=== PATIENT | female | born 1995 | race African-American/Black ===

== ENCOUNTER 2024-04-07 14:01 | Outpatient (AMB) | payer OTHER, SELFPAY ==
[2024-04-07 14:30] VITALS: BP 120/80; PULSE 71; O2SAT 98; BMI 26.4
--- NOTE | 2024-04-07 14:30 | A.OFFVIS_ITS ---
Vital Signs 04/07/24 14:30 Height 5 ft 2 in Weight 144 lb 2.917 oz BMI 26.4 BP 120/80 Blood Pressure Location Lt brachial Position Sitting Pulse 71 Pulse Source Pulse Oximeter Pulse Oximetry (%) 98 Oxygen Delivery Method Room Air Intake Visit Reasons: Lupus/CM Intake Note: Patient presents for lupus follow up on Lupus. Patient is requesting Hydroxychloroquine. Patient would like to request 90 days supply. Allergies metronidazole [From Flagyl] Allergy (Mild, Verified 04/07/24 14:34) HIVES HPI Comments Details: Ran out of HCQ. Had an epsiode of right finger joint pain lasting 2 days, self resolved this week. No other flares. NO fevers, rash, dyspnea, oral ulcers, pleurisy, urinary symptoms, joint pain or swelling, sicca symptoms, raynaud's syndrome. Review of Systems Const All systems reviewed & are unremarkable except as noted in HPI and below Physical Exam Vital Signs: Last Vital Signs Pulse 71 04/07/24 14:30 BP 120/80 04/07/24 14:30 Pulse Ox 98 04/07/24 14:30 Oxygen Delivery Method Room Air 04/07/24 14:30 BMI result Body Mass Index 26.4 Const Other: General: Comfortable CVS: RRR Respiratory: clear to auscultation bilaterally. Good respiratory effort Skin: No lesions seen MSK:No synovitis, good ROM of upper extremities and lower extremities. Assessment & Plan Assessment & Plan (1) Systemic lupus erythematosus: Comment: Stable. She had recent flare of joint pain involving right 2nd finger, self resolved off of hydroxychloroquine. 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 Category: Medical Plan: See above Orders: Orders C Reactive Protein Today M32.9 - Systemic lupus erythematosus, unspecified, Z79.899 - Other intermodal truck driver (current) drug therapy Aspartate Amino Transferase Today Z79.60 - long term acute care registered nurse (current) use of unspecified immunomodulators and immunosuppressants Anti Extractable Nuclear Ag Today M32.9 - Systemic lupus erythematosus, unspecified, Z79.899 - Other intermodal truck driver (current) drug therapy UA w Microscopic Today M32.9 - Systemic lupus erythematosus, unspecified, Z79.899 - Other detention (current) drug therapy Protein Creatinine Ratio, Ur Today M32.9 - Systemic lupus erythematosus, unspecified, Z79.899 - Other intermodal truck driver (current) drug therapy Erythrocyte Sedimentation Rate Today M32.9 - Systemic lupus erythematosus, unspecified, Z79.899 - Other detention (current) drug therapy Alanine Aminotransferase Today Z79.60 - long term acute care registered nurse (current) use of unspecified immunomodulators and immunosuppressants Creatinine Today Z79.60 - long term acute care registered nurse (current) use of unspecified immunomodulators and immunosuppressants Complete Blood Count Auto Diff Today Z79.60 - [facility] (current) use of unspecified immunomodulators and immunosuppressants Complement C4 Today M32.9 - Systemic lupus erythematosus, unspecified, Z79.899 - Other intermodal truck driver (current) drug therapy Complement C3 Today M32.9 - Systemic lupus erythematosus, unspecified, Z79.899 - Other detention (current) drug therapy Anti DNA DS Antibody Today M32.9 - Systemic lupus erythematosus, unspecified, Z79.899 - Other detention (current) drug therapy Coding Level of Care Code Est Pt Level 4 (75386) Complex EM visit Add On G2211 Diagnoses Systemic lupus erythematosus M32.9 Other detention (current) drug therapy Z79.899
== END 2024-04-07 15:04 | disposition home or self-care (01) ==
PROVIDERS: PCP Internal Medicine; Visit Provider Internal Medicine Rheumatology
DX: M32.9 Systemic lupus erythematosus, unspecified (principal); Z79.899 Other long term (current) drug therapy
CPT/HCPCS: 99214

== ENCOUNTER 2024-04-10 08:32 | Outpatient (REF) | payer OTHER, SELFPAY ==
[2024-04-10 08:50] LABS: MANUAL DIFF FLAG NO
[2024-04-10 09:25] LABS: Hematocrit 35.1 % (37.0-47.0); Hemoglobin 11.8 g/dl (12.0-16.0); Imm Gran Abs Auto 0.01 X10*3/uL (0.00-0.03); Imm Gran Pct Auto 0.2 % (0.0-0.4); Lymphocytes Absolute Auto 1.4 X10*3/uL (1.2-4.9); Lymphocytes Percent Auto 34.7 % (20-40); Mean Corpuscular HGB Conc 33.6 g/dl (31.0-35.0); Mean Corpuscular Hemoglobin 28.9 pg (27.0-33.0); Mean Corpuscular Volume 85.8 fL (80.0-98.0); Mean Platelet Volume 10.3 fL (9.4-12.3); Monocytes Absolute Auto 0.3 X10*3/uL (0.1-1.2); Monocytes Percent Auto 8.2 % (2-11); Neutrophils Absolute Auto 2.2 x10*3/uL (2.0-8.3); Neutrophils Percent Auto 54.9 % (45-73); Platelet Count 210 X10*3/uL (160-400); Red Blood Count 4.09 X10*6/uL (4.20-5.50); Red Cell Distribution Width 12.7 % (11.0-16.0)
[2024-04-10 09:40] LABS: Appearance Urine Clear; Color Urine Yellow; Glucose Urine UA Negative (Negative); Leukocyte Esterase Urine Negative (Negative); Nitrite Urine Negative (Negative); PH 5.5 (5.0-9.0); Urine Blood Negative (Negative); Urine Ketones Negative (Negative); Urine Protein Negative (Neg-Trace)
[2024-04-10 09:43] LABS: Bacteria Urine 1+ (None Seen); Hyaline Casts Urine 0-2 /LPF (0-2); RBC Urine 0-2 /HPF (0-2); WBC Urine 0-5 /HPF (0-5)
[2024-04-10 10:03] LABS: Erythrocyte Sedimentation Rate 14 MM/HR (0-20)
[2024-04-10 10:15] LABS: Alanine Aminotransferase 11 U/L (0-31); Aspartate Amino Transferase 19 U/L (5-31); C Reactive Protein < 0.10 mg/dL (< or = 0.50); Estimated Glomerular Filt Rate > 60
[2024-04-10 11:30] LABS: Total Protein Urine Random < 7 mg/dL (<12)
[2024-04-12 09:08] LABS: Complement C3 83 mg/dL (83-193)
[2024-04-13 14:19] LABS: Anti DNA DS Antibody 4 IU/mL; SM/Ribonucleoprotein Ab <1.0 NEG AI (<1.0 NEG); Smith Protein <1.0 NEG AI (<1.0 NEG)
== END 2024-04-10 08:33 | disposition home or self-care (01) ==
LOC: HO.LAB 08:32
PROVIDERS: PCP Internal Medicine; Visit Provider Internal Medicine Rheumatology
DX: M32.9 Systemic lupus erythematosus, unspecified (principal); Z79.60 Long term (current) use of unspecified immunomodulators and immunosuppressants; Z79.899 Other long term (current) drug therapy
CPT/HCPCS: 36415; 81001; 82565; 82570; 84156; 84450; 84460; 85025; 85652; 86140; 86160; 86225; 86235

== ENCOUNTER 2024-07-06 13:57 | Outpatient (AMB) | payer OTHER, SELFPAY ==
--- NOTE | 2024-07-06 14:11 | MHC.OFFVIS ---
Vital Signs 07/06/24 14:13 Height 5 ft 2 in Weight 147 lb 0.773 oz BMI 26.9 BP 106/80 Blood Pressure Location Lt brachial Position Sitting Pulse 73 Pulse Source Pulse Oximeter Pulse Oximetry (%) 98 Oxygen Delivery Method Room Air Intake Visit Reasons: 3 mo follow up Intake Note: Patient presents for lupus follow up on Lupus. Allergies metronidazole [From Flagyl] Allergy (Mild, Verified 04/07/24 14:34) HIVES HPI HPI 3 mo follow up: Details: She had joint pain in Feb with index finger swelling. Lasted 2 days. She did not self medicate. No fevers, dyspnea, pleurisy, urinary symptoms, oral ulcers, raynauds' syndrome. Review of Systems Const All systems reviewed & are unremarkable except as noted in HPI and below Physical Exam Vital Signs: Last Vital Signs Pulse 73 07/06/24 14:13 BP 106/80 07/06/24 14:13 Pulse Ox 98 07/06/24 14:13 Oxygen Delivery Method Room Air 07/06/24 14:13 BMI result Body Mass Index 26.9 Const Other: General: Comfortable CVS: RRR Respiratory: clear to auscultation bilaterally. Good respiratory effort Skin: No lesions seen MSK:No synovitis, normal ROM of upper extremities and lower extremities. Assessment & Plan Assessment & Plan (1) Systemic lupus erythematosus: Comment: She is developing joint pain/swelling involving her right hand, self-limited. Labs from last visit are stable revealing chronic leukopenia, mild anemia and low C4. Rheumatology history: Diagnosed in 2018 in [place]. Presenting with inflammatory arthritis and rash. She has leukopenia, chronic low C4 and positive SSA antibody. She has been on hydroxychloroquine since 2018- Code(s): M32.9 - Systemic lupus erythematosus, unspecified Category: Medical Plan: She will use ibuprofen 600 mg q.h.s. with food to control joint pain Keep log of joint symptoms Continue hydroxychloroquine 300 mg daily. OCT and visual field test 07/2024 Return to clinic in 3 months (2) Anemia: Code(s): D64.9 - Anemia, unspecified Category: Medical Qualifiers: Anemia type: unspecified type Qualified Code(s): D64.9 - Anemia, unspecified Plan: I have ordered iron studies for further evaluation of anemia (3) Hand pain, right: Code(s): M79.641 - Pain in right hand Category: Medical Plan: See above Orders: Orders Aspartate Amino Transferase Today Z79.60 - nursing home (current) use of unspecified immunomodulators and immunosuppressants Anti DNA DS Antibody Today M32.9 - Systemic lupus erythematosus, unspecified Complement C4 Today M32.9 - Systemic lupus erythematosus, unspecified UA w Microscopic Today M32.9 - Systemic lupus erythematosus, unspecified IRON PROFILE Today D64.9 - Anemia, unspecified Lactate Dehydrogenase Today D64.9 - Anemia, unspecified Haptoglobin Today D64.9 - Anemia, unspecified Alanine Aminotransferase Today Z79.60 - local company intermodal truck driver (current) use of unspecified immunomodulators and immunosuppressants Complete Blood Count Auto Diff Today Z79.60 - local company intermodal truck driver (current) use of unspecified immunomodulators and immunosuppressants Creatinine Today Z79.60 - local company intermodal truck driver (current) use of unspecified immunomodulators and immunosuppressants Erythrocyte Sedimentation Rate Today Z79.899 - Other termite helper (current) drug therapy C Reactive Protein Today Z79.899 - Other nursing home (current) drug therapy Complement C3 Today M32.9 - Systemic lupus erythematosus, unspecified Protein Creatinine Ratio, Ur Today M32.9 - Systemic lupus erythematosus, unspecified Ferritin Today D64.9 - Anemia, unspecified Transferrin Today D64.9 - Anemia, unspecified Cyclic Citrullinated Peptide Today M79.641 - Pain in right hand Rheumatoid Factor Today M79.641 - Pain in right hand Coding Level of Care Code Est Pt Level 4 (43555) Complex EM visit Add On G2211 Diagnoses Systemic lupus erythematosus M32.9 Anemia, unspecified type D64.9 Anemia type: unspecified type Hand pain, right M79.641
[2024-07-06 14:13] VITALS: BP 106/80; PULSE 73; O2SAT 98; BMI 26.9
== END 2024-07-06 14:42 | disposition home or self-care (01) ==
LOC: HO.RHES 13:58
PROVIDERS: PCP Internal Medicine; Visit Provider Internal Medicine Rheumatology
DX: M32.9 Systemic lupus erythematosus, unspecified (principal); D64.9 Anemia, unspecified; M79.641 Pain in right hand
CPT/HCPCS: 99214

== ENCOUNTER 2024-07-06 13:57 | Outpatient (REF) | payer OTHER, SELFPAY ==
[2024-07-06 18:34] LABS: MANUAL DIFF FLAG NO
[2024-07-06 18:37] LABS: Appearance Urine Clear; Color Urine Yellow; Glucose Urine UA Negative (Negative); Leukocyte Esterase Urine Negative (Negative); Nitrite Urine Negative (Negative); Urine Blood Negative (Negative); Urine Ketones Negative (Negative); Urine Protein Negative (Neg-Trace)
[2024-07-06 18:40] LABS: Basophils Percent Auto 0.7 % (0-2); Eosinophils Absolute Auto 0.1 X10*3/uL (0.0-0.4); Eosinophils Percent Auto 1.1 % (0-4); Hematocrit 36.3 % (37.0-47.0); Imm Gran Abs Auto 0.01 X10*3/uL (0.00-0.03); Imm Gran Pct Auto 0.2 % (0.0-0.4); Lymphocytes Absolute Auto 1.9 X10*3/uL (1.2-4.9); Lymphocytes Percent Auto 34.7 % (20-40); Mean Corpuscular HGB Conc 33.1 g/dl (31.0-35.0); Mean Corpuscular Hemoglobin 29.1 pg (27.0-33.0); Mean Corpuscular Volume 87.9 fL (80.0-98.0); Mean Platelet Volume 10.8 fL (9.4-12.3); Monocytes Absolute Auto 0.5 X10*3/uL (0.1-1.2); Monocytes Percent Auto 8.3 % (2-11); Neutrophils Absolute Auto 3.1 x10*3/uL (2.0-8.3); Platelet Count 213 X10*3/uL (160-400); Red Blood Count 4.13 X10*6/uL (4.20-5.50); Red Cell Distribution Width 13.2 % (11.0-16.0); White Blood Count 5.6 X10*3/uL (4.8-10.8)
[2024-07-06 18:44] LABS: Bacteria Urine None Seen (None Seen); Hyaline Casts Urine 0-2 /LPF (0-2); RBC Urine 0-2 /HPF (0-2); WBC Urine 0-5 /HPF (0-5)
[2024-07-06 19:12] LABS: Creatinine Urine 82.41 mg/dL; Total Protein Urine Random < 7 mg/dL (<12)
[2024-07-06 19:18] LABS: Haptoglobin 127 mg/dL (35-250)
[2024-07-06 19:21] LABS: Rheumatoid Factor < 13.0 IU/mL (<15.0)
[2024-07-06 19:43] LABS: Lactate Dehydrogenase 233 U/L (122-220)
[2024-07-06 19:52] LABS: Alanine Aminotransferase 14 U/L (0-31); Aspartate Amino Transferase 25 U/L (5-31); C Reactive Protein < 0.10 mg/dL (< or = 0.50); Estimated Glomerular Filt Rate > 60; Iron 66 mcg/dL (30-160); Percent Iron Saturation 23 % (15-50); Total Iron Binding Capacity 284 mcg/dL (228-428); Unsaturated Iron Binding 218 ug/dL
[2024-07-06 20:06] LABS: Ferritin 21 ng/mL (10-122)
[2024-07-06 20:11] LABS: Erythrocyte Sedimentation Rate 14 MM/HR (0-20)
[2024-07-07 09:34] LABS: Transferrin 266 mg/dL (188-341)
[2024-07-07 12:09] LABS: Complement C3 92 mg/dL (83-193)
[2024-07-07 18:54] LABS: Anti DNA DS Antibody 3 IU/mL
[2024-07-08 11:37] LABS: Cyclic Citrullinated Peptide <16 UNITS
== END 2024-07-06 13:58 | disposition home or self-care (01) ==
LOC: HO.HKASLDS 13:57
PROVIDERS: PCP Internal Medicine; Visit Provider Internal Medicine Rheumatology
DX: M32.9 Systemic lupus erythematosus, unspecified (principal); Z79.60 Long term (current) use of unspecified immunomodulators and immunosuppressants; Z79.899 Other long term (current) drug therapy; D64.9 Anemia, unspecified; M79.641 Pain in right hand
CPT/HCPCS: 36415; 81001; 82565; 82570; 82728; 83010; 83540; 83615; 84156; 84450; 84460; 84466; 85025; 85652; 86140; 86160; 86200; 86225; 86431

== ENCOUNTER 2024-10-06 09:41 | Outpatient (REF) | payer OTHER, SELFPAY ==
[2024-10-06 13:58] LABS: Hematocrit 37.7 % (37.0-47.0); Hemoglobin 12.6 g/dl (12.0-16.0); IG%MD 0.2 %; Lymph%MD 42.8 %; Mean Corpuscular HGB Conc 33.4 g/dl (31.0-35.0); Mean Corpuscular Hemoglobin 28.7 pg (27.0-33.0); Mean Corpuscular Volume 85.9 fL (80.0-98.0); Mean Platelet Volume 10.2 fL (9.4-12.3); Mono%MD 9.2 %; Neut%MD 45.8 %; Platelet Count 236 X10*3/uL (160-400); Red Blood Count 4.39 X10*6/uL (4.20-5.50); Red Cell Distribution Width 12.7 % (11.0-16.0)
[2024-10-06 14:14] LABS: Appearance Urine Clear; Color Urine Yellow; Glucose Urine UA Negative (Negative); Leukocyte Esterase Urine Trace (Negative); Nitrite Urine Negative (Negative); PH 7.5 (5.0-9.0); Specific Gravity - Urine 1.025 (1.005-1.025); UMIC TRIGGER UA YES; Urine Blood Negative (Negative); Urine Ketones Trace mg/dL (Negative); Urine Protein 30 (1+) mg/dL (Neg-Trace)
[2024-10-06 14:18] LABS: Bacteria Urine 1+ (None Seen); Hyaline Casts Urine 0-2 /LPF (0-2); RBC Urine 0-2 /HPF (0-2); WBC Urine 0-5 /HPF (0-5)
[2024-10-06 14:35] LABS: Alanine Aminotransferase 17 U/L (0-31); Aspartate Amino Transferase 21 U/L (5-31); C Reactive Protein < 0.10 mg/dL (< or = 0.50); Estimated Glomerular Filt Rate > 60
[2024-10-06 14:36] LABS: Creatinine Urine 202.29 mg/dL; Protein/Creatinine Ratio, Ur 0.05 (<0.2); Total Protein Urine Random 10 mg/dL (<12)
[2024-10-06 14:42] LABS: Atypical Lymph Absolute Manual 0.2 x10*3/uL; Atypical Lymphs Percent Manual 3 % (0-6); Band Neutrophils Percent 0 % (3-5); Basophils Abs Manual 0.1 X10*3/uL (0.0-0.2); Basophils Percent Manual 1 % (0-2); Eosinophils Absolute Manual 0.1 X10*3/uL (0.0-0.4); Eosinophils Percent Manual 2 % (0-4); Lymphocytes Absolute Manual 2.2 X10*3/uL (1.2-4.9); Lymphocytes Percent Manual 44 % (20-40); Monocytes Absolute Manual 0.3 X10*3/uL (0.1-1.2); Monocytes Percent Manual 5 % (2-11); Neutrophils Absolute Manual 2.3 X10*3/uL (2.0-8.3); Neutrophils Percent Manual 45 % (45-73)
[2024-10-06 14:43] LABS: Platelet Estimate NORMAL (NORMAL); Platelet Morphology Comment NORMAL; RBC Morphology NORMAL
[2024-10-06 14:44] LABS: Erythrocyte Sedimentation Rate 12 MM/HR (0-20)
[2024-10-07 19:53] LABS: Complement C3 96 mg/dL (83-193)
[2024-10-07 21:53] LABS: Anti DNA DS Antibody 5 IU/mL
== END 2024-10-06 09:42 | disposition home or self-care (01) ==
LOC: HO.HKASLDS 09:41
PROVIDERS: PCP Internal Medicine; Visit Provider Internal Medicine Rheumatology
DX: M32.9 Systemic lupus erythematosus, unspecified (principal)
CPT/HCPCS: 36415; 81001; 82565; 82570; 84156; 84450; 84460; 85007; 85027; 85652; 86140; 86160; 86225

== ENCOUNTER 2024-10-06 09:41 | Outpatient (AMB) | payer OTHER, SELFPAY ==
[2024-10-06 09:50] VITALS: BP 110/62; PULSE 77; O2SAT 98; BMI 26.5
--- NOTE | 2024-10-06 09:50 | A.OFFVIS_ITS ---
Vital Signs 10/06/24 09:50 Height 5 ft 2 in Weight 145 lb BMI 26.5 BP 110/62 Blood Pressure Location Rt brachial Position Sitting Pulse 77 Pulse Source Pulse Oximeter Pulse Oximetry (%) 98 Oxygen Delivery Method Room Air Intake Visit Reasons: 3 Months Intake Note: Patient presents for follow up on Lupus. Allergies metronidazole [From Flagyl] Allergy (Mild, Verified 10/06/24 09:54) HIVES HPI HPI 3 Months: Details: She denies joint pain or swelling. Denies fevers, pleurisy, dyspnea, urinary symptoms, rash, Raynaud's phenomenon. She feels well. No recent infections. Physical Exam Vital Signs: Last Vital Signs Pulse 77 10/06/24 09:50 BP 110/62 10/06/24 09:50 Pulse Ox 98 10/06/24 09:50 Oxygen Delivery Method Room Air 10/06/24 09:50 BMI result Body Mass Index 26.5 Const Other: General: Comfortable CVS: RRR Respiratory: clear to auscultation bilaterally. Good respiratory effort Skin: No lesions seen MSK:No synovitis, normal ROM of upper extremities and lower extremities. Assessment & Plan Assessment & Plan (1) Systemic lupus erythematosus: Comment: In clinical remission. Joint pain and swelling has resolved. she is compliant on hydroxychloroquine. Labs from June show improvement with resolution of chronic leukopenia, hemoglobin is normal with low hematocrit and she continues to have low C4 but it is up trending. Rheumatology history: Diagnosed in 2018 in [place]. Presenting with inflammatory arthritis and rash. She has leukopenia, chronic low C4 and positive SSA antibody. She has been on hydroxychloroquine since 2018- Code(s): M32.9 - Systemic lupus erythematosus, unspecified Category: Medical Plan: Continue hydroxychloroquine 300 mg daily. OCT and visual field test 07/2024 wnl. Due yearly Return to clinic in 3 months Orders: Orders Complete Blood Count Man Dif Today M32.9 - Systemic lupus erythematosus, unspecified Erythrocyte Sedimentation Rate Today M32.9 - Systemic lupus erythematosus, unspecified Complement C4 Today M32.9 - Systemic lupus erythematosus, unspecified Anti DNA DS Antibody Today M32.9 - Systemic lupus erythematosus, unspecified Alanine Aminotransferase Today M32.9 - Systemic lupus erythematosus, unspecified Aspartate Amino Transferase Today M32.9 - Systemic lupus erythematosus, unspecified Creatinine Today M32.9 - Systemic lupus erythematosus, unspecified C Reactive Protein Today M32.9 - Systemic lupus erythematosus, unspecified UA w Microscopic Today M32.9 - Systemic lupus erythematosus, unspecified Protein Creatinine Ratio, Ur Today M32.9 - Systemic lupus erythematosus, unspecified Complement C3 Today M32.9 - Systemic lupus erythematosus, unspecified Medications: Refilled hydroxychloroquine 300 mg (1.5 x 200 mg) PO DAILY 135 tabs 3RF Coding Level of Care Code Est Pt Level 4 (76946) Complex EM visit Add On G2211 Diagnoses Systemic lupus erythematosus M32.9
== END 2024-10-06 10:17 | disposition home or self-care (01) ==
LOC: HO.RHES 09:41
PROVIDERS: PCP Internal Medicine; Visit Provider Internal Medicine Rheumatology
DX: M32.9 Systemic lupus erythematosus, unspecified (principal)
CPT/HCPCS: 99214; G2211

== ENCOUNTER 2025-01-12 09:20 | Outpatient (REF) | payer OTHER, SELFPAY ==
[2025-01-12 13:12] LABS: MANUAL DIFF FLAG NO
[2025-01-12 13:19] LABS: Hematocrit 35.8 % (37.0-47.0); Hemoglobin 11.9 g/dl (12.0-16.0); Imm Gran Abs Auto 0.01 X10*3/uL (0.00-0.03); Imm Gran Pct Auto 0.2 % (0.0-0.4); Lymphocytes Absolute Auto 1.9 X10*3/uL (1.2-4.9); Mean Corpuscular HGB Conc 33.2 g/dl (31.0-35.0); Mean Corpuscular Hemoglobin 28.8 pg (27.0-33.0); Mean Corpuscular Volume 86.7 fL (80.0-98.0); NRBC Abs Auto 0.000 X10*3/uL (0.0-0.012); NRBC Pct Auto 0.0 /100WBC (0.0-0.2); Platelet Count 254 X10*3/uL (160-400); Red Blood Count 4.13 X10*6/uL (4.20-5.50); White Blood Count 4.7 X10*3/uL (4.8-10.8)
[2025-01-12 13:21] LABS: Appearance Urine Clear; Glucose Urine UA Negative (Negative); PH 7.5 (5.0-9.0); Specific Gravity - Urine 1.010 (1.005-1.025)
[2025-01-12 14:05] LABS: Alanine Aminotransferase 11 U/L (0-31); Aspartate Amino Transferase 24 U/L (5-31); Estimated Glomerular Filt Rate > 60
[2025-01-12 14:15] LABS: Total Protein Urine Random < 7 mg/dL (<12)
== END 2025-01-12 09:21 | disposition home or self-care (01) ==
LOC: HO.HKASLDS 09:20
PROVIDERS: PCP Internal Medicine; Visit Provider Internal Medicine Rheumatology
DX: M32.9 Systemic lupus erythematosus, unspecified (principal); D72.819 Decreased white blood cell count, unspecified; R21 Rash and other nonspecific skin eruption; Z51.81 Encounter for therapeutic drug level monitoring; Z79.899 Other long term (current) drug therapy
CPT/HCPCS: 36415; 81001; 82565; 82570; 84156; 84450; 84460; 85025; 85652; 86140; 86160; 86225

== ENCOUNTER 2025-01-12 09:20 | Outpatient (AMB) | payer OTHER, SELFPAY ==
[2025-01-12 09:24] VITALS: BP 110/80; PULSE 73; O2SAT 97; BMI 26.9
--- NOTE | 2025-01-12 09:24 | MHC.OFFVIS ---
Vital Signs 01/12/25 09:24 Height 5 ft 2 in Weight 147 lb 0.773 oz BMI 26.9 BP 110/80 Blood Pressure Location Rt brachial Position Sitting Pulse 73 Pulse Source Pulse Oximeter Pulse Oximetry (%) 97 Oxygen Delivery Method Room Air Intake Visit Reasons: 3 Months Intake Note: Patient presents for follow up on Lupus. Accompanied by: Self / Same As Patient Allergies metronidazole (From Flagyl) Allergy (Mild, Verified 10/06/24 09:54) HIVES HPI HPI 3 Months: Details: Doing well. Compliant with HCQ. No symptoms. Denies fevers Dyspnea, pleurisy, oral ulcers, genital ulcers, sicca symptoms, joint pain, joint swelling, urinary symptoms. She has history of intermittent migraines that have not increased in frequency. Physical Exam Vital Signs: Last Vital Signs Pulse 73 01/12/25 09:24 BP 110/80 01/12/25 09:24 Pulse Ox 97 01/12/25 09:24 Oxygen Delivery Method Room Air 01/12/25 09:24 BMI result Body Mass Index 26.9 Const Other: General: Comfortable CVS: RRR Respiratory: clear to auscultation bilaterally. Good respiratory effort Skin: No lesions seen MSK:No synovitis, normal ROM of upper extremities and lower extremities. Assessment & Plan Assessment & Plan (1) Systemic lupus erythematosus: Comment: In clinical remission. She continues to have low C4 with indeterminate double-stranded DNA on most recent labs from September 2024. Rheumatology history: Diagnosed in 2018 in [place]. Presenting with inflammatory arthritis and rash. She has leukopenia, chronic low C4 and positive SSA antibody. She has been on hydroxychloroquine since 2018- Code(s): M32.9 - Systemic lupus erythematosus, unspecified Category: Medical Plan: Continue hydroxychloroquine 300 mg daily. OCT and visual field test 07/2024 wnl. Due yearly Labs for disease and drug monitoring on high-risk medication ordered Return to clinic in 3 months Orders: Orders Erythrocyte Sedimentation Rate Today M32.9 - Systemic lupus erythematosus, unspecified Complement C3 Today M32.9 - Systemic lupus erythematosus, unspecified Complement C4 Today M32.9 - Systemic lupus erythematosus, unspecified Complete Blood Count Auto Diff Today M32.9 - Systemic lupus erythematosus, unspecified Protein Creatinine Ratio, Ur Today M32.9 - Systemic lupus erythematosus, unspecified Alanine Aminotransferase Today M32.9 - Systemic lupus erythematosus, unspecified Aspartate Amino Transferase Today M32.9 - Systemic lupus erythematosus, unspecified Creatinine Today M32.9 - Systemic lupus erythematosus, unspecified Anti DNA DS Antibody Today M32.9 - Systemic lupus erythematosus, unspecified UA ClnCatch+Micro w/rflx Cult Today M32.9 - Systemic lupus erythematosus, unspecified C Reactive Protein Today M32.9 - Systemic lupus erythematosus, unspecified Coding Level of Care Code Est Pt Level 4 (57878) Complex EM visit Add On G2211 Diagnoses Systemic lupus erythematosus M32.9
== END 2025-01-12 09:55 | disposition home or self-care (01) ==
LOC: HO.RHES 09:20
PROVIDERS: PCP Internal Medicine; Visit Provider Internal Medicine Rheumatology
DX: M32.9 Systemic lupus erythematosus, unspecified (principal)
CPT/HCPCS: 99214; G2211